=== PATIENT | female | born 1955 | race Hispanic/Latino ===

== ENCOUNTER 2025-03-17 12:16 | Observation (INO) | payer MEDICARE ==
[2025-03-17] VITALS (9 sets, daily range): BP systolic 150–168; BP diastolic 69–72; PULSE 57–74; RESP 18–20; TEMP 97.9–98.3; O2SAT 97–100
[~2025-03-17] VITALS: Ht 154.9 cm; Wt 72.1 kg
[2025-03-17 12:50] LABS: BASOPHILS % 0.7 % (0.0-1.0); EOSINOPHILS % 1.9 % (0.0-6.0); LYMPHOCYTES % 25.5 % (18.0-39.1); MONOCYTES % 6.7 % (4.4-11.3); NEUTROPHILS % 64.9 % (38.7-80.0); RED CELL DISTRIBUTION WIDTH 12.4 % (11.7-14.4)
[2025-03-17 13:05] LABS: EST GLOMERULAR FILTRATION RATE 97.0 ML/MIN (>=60)
[2025-03-17] MEDS ORDERED: IOPAMIDOL 370 MG/ML 100 ML INFUS..BTL INJ ONE (13:10)
[2025-03-17 14:06] LABS: AMPHETAMINES SCREEN,URINE NEGATIVE (NEGATIVE); CANNABINOIDS SCREEN,URINE NEGATIVE (NEGATIVE); COCAINE SCREEN,URINE NEGATIVE (NEGATIVE); METHADONE SCREEN, URINE NEGATIVE (NEGATIVE); OPIATES SCREEN,URINE NEGATIVE (NEGATIVE)
[2025-03-17] MEDS: ASPIRIN 81 MG CHEW TAB PO ONE (15:11)
[2025-03-17] MEDS ORDERED: LISINOPRIL10 MG PO (17:56)
[2025-03-17] MEDS ORDERED: ACETAMINOPHEN 325 MG TAB PO PRN (20:00)
[2025-03-17] MEDS ORDERED: ONDANSETRON HCL 4 MG ORAL DISINTEGRATING TAB PO PRN (20:00)
[2025-03-17] MEDS ORDERED: MELATONIN 5 MG TABLET PO PRN (20:00)
[2025-03-17] MEDS: FAMOTIDINE 20 MG/2 ML VIAL IV SCH (21:38)
[2025-03-17] MEDS: INSULIN GLARGINE 100 UNITS/ML VIAL SQ SCH (21:40)
[2025-03-17] MEDS: LISINOPRIL 20 MG TAB PO SCH (21:41)
[2025-03-18 05:15] LABS: BASOPHILS % 0.7 % (0.0-1.0); EOSINOPHILS % 4.3 % (0.0-6.0); LYMPHOCYTES % 31.7 % (18.0-39.1); MONOCYTES % 8.3 % (4.4-11.3); NEUTROPHILS % 54.8 % (38.7-80.0); RED CELL DISTRIBUTION WIDTH 12.4 % (11.7-14.4)
[2025-03-18 05:45] LABS: EST GLOMERULAR FILTRATION RATE 99.0 ML/MIN (>=60)
[2025-03-18 07:00] VITALS: BP 168/75; PULSE 69; RESP 20; TEMP 98.1; O2SAT 100
[2025-03-18] MEDS: SERTRALINE HCL 100 MG TAB PO SCH (08:12)
[2025-03-18 08:34] VITALS: BP 168/75; PULSE 69; RESP 20; TEMP 98.1; O2SAT 100
[2025-03-18] MEDS ORDERED: LISINOPRIL 20 MG TAB PO SCH (09:00)
[2025-03-18] MEDS: ASPIRIN 81 MG CHEW TAB PO SCH (09:31)
[2025-03-18] MEDS: DICYCLOMINE HCL 10 MG CAP PO SCH (10:38)
[2025-03-18] MEDS: METHOCARBAMOL 750 MG TAB PO ONE (10:38)
[2025-03-18 12:00] VITALS: BP 197/78; PULSE 60; RESP 18; TEMP 98; O2SAT 99
[2025-03-18] MEDS: HYDRALAZINE HCL 20 MG/ML VIAL IV PRN (12:37)
[2025-03-18] MEDS: AMLODIPINE BESYLATE 5 MG TAB PO SCH (12:38)
[2025-03-18 16:49] VITALS: BP 149/68; PULSE 63; RESP 20; TEMP 97.3; O2SAT 99
[2025-03-18] MEDS: INSULIN GLARGINE 100 UNITS/ML VIAL SQ SCH (17:37)
[2025-03-18] MEDS ORDERED: AMLODIPINE BESYL5 MG PO (18:27)
[2025-03-18] MEDS ORDERED: PROTONIX20 MG PO (18:27)
[2025-03-18] MEDS ORDERED: DICYCLOMINE HCL10 MG PO (18:28)
[2025-03-18] MEDS ORDERED: ATORVASTATIN 40 MG TAB PO SCH (21:00)
[2025-03-18] MEDS ORDERED: DICYCLOMINE HCL 10 MG CAP PO SCH (21:00)
== END 2025-03-18 18:45 | disposition home or self-care (01) ==
LOC: ER 12:33 → ERHOLD 14:46 → MED/SURG 16:16
PROVIDERS: ADMIT Family Medicine Adult Medicine; ATTEND Family Medicine Adult Medicine
DX: R07.2 Precordial pain (principal); R10.13 Epigastric pain; I10 Essential (primary) hypertension; E11.40 Type 2 diabetes mellitus with diabetic neuropathy, unspecified; E11.65 Type 2 diabetes mellitus with hyperglycemia; E78.5 Hyperlipidemia, unspecified; Z85.3 Personal history of malignant neoplasm of breast; Z90.12 Acquired absence of left breast and nipple; F41.9 Anxiety disorder, unspecified; Z86.73 Personal history of transient ischemic attack (TIA), and cerebral infarction without residual deficits
CPT/HCPCS: 36415 ×2; 71260; 74177; 76705; 80048; 80053; 80307; 82550; 82948 ×2; 83690; 84484 ×2; 85025 ×2; 93005; 94799; 99284; G0378 ×2; J0360; J1308 ×2; J1815; Q9967